=== PATIENT | female | born 1950 | race Caucasian/White ===

== ENCOUNTER 2022-02-26 02:10 | Emergency (ER) | payer MEDICARE, OTHER ==
[~2022-02-26] VITALS: Ht 152.4 cm; Wt 59.0 kg
[~2022-02-26 02:10] MED LIST: ALL DAY ALLERGY10 M3 PO; LISINOPRIL20 MG PO; PLAVIX75 MG PO; VITAMIN D34000 UNIT PO
[2022-02-26] MEDS ORDERED: ALENDRONATE SOD70 MG PO (02:22)
[2022-02-26] MEDS ORDERED: LOMOTIL TABLET1 EACH PO (03:19)
== END 2022-02-26 03:55 | disposition home or self-care (01) ==
LOC: ED 02:10
DX: E86.0 Dehydration (principal); R55 Syncope and collapse; Z88.0 Allergy status to penicillin; Z91.018 Allergy to other foods; Z91.030 Bee allergy status; Z79.899 Other long term (current) drug therapy; Z20.822 Contact with and (suspected) exposure to COVID-19
CPT/HCPCS: 36415; 80048; 81001; 83690; 85025; 96374; 99284-25; C9803; J1885; J7030; U0003